=== PATIENT | female | born 1990 | race Caucasian/White ===

== ENCOUNTER 2019-02-15 21:38 | Emergency (ER) | payer MEDICAID, SELFPAY ==
[2019-02-15 21:41] VITALS: BP 132/75; PULSE 116; RESP 15; TEMP 36.8; O2SAT 96; BMI 22.1
--- NOTE | 2019-02-15 22:26 | ED.VIS.GEN ---
History of Present Illness Chief Complaint: Bite Informant: Patient Onset: Today Context: Sudden Onset Narrative: Is a 29-year-old female with no significant past medical history presenting with a dog bite to her right forearm. Patient states she was petting the dog when her brother walked in the room startling the dog. It then bit her forearm. The dog was approximate 5 years old. It was a friend's dog. She does not know what kind of dog it was but states it was big and white. As far she knows the dog is up-to-date with his vaccinations. Patient is not sure when her last tetanus was. She denies any other complaints at this time. She came in because she was concerned she might need stitches. She notes she does have a little bit of tingling in all of her fingers on her right hand. Past Medical History - Allergies and Home Meds Allergies/Adverse Reactions: Allergies No Known Allergies Allergy (Verified 02/15/19 21:43) Primary Care Physician: Care Physician,No Primary [Primary Care Provider] - Past Medical History: None Surgical History: noncontributory Smoking Status: Current every day smoker Review of Systems All systems negative except as indicated Skin: Reports: Wounds - Right forearm from dog bite Physical Exam Vital Signs/Narrative: Vital Signs Temp Pulse Resp BP Pulse Ox 02/15/19 21:41 98.3 F 116 H 15 132/75 H 96 Inital Vital Signs reviewed: Yes General: Well nourished, Well developed, No Acute Distress Head: Normocephalic, Atraumatic Eyes: Perrl, EOMI ENT: Moist mucous membranes Neck: Supple Cardiovascular: Regular rate, Regular rhythm Respiratory: No distress Back: Nontender, Normal Inspection Extremities: Nontender, No edema, - - Joint deformity, full range of motion of the right upper extremity Skin: Normal color, - - Full-thickness 7 mm laceration of the mid right forearm, medial/ventral aspect with some associated bruising and 4 cm superficial abrasion, consistent with a dog bite area no active bleeding, wound is 2 mm wide Neurological: Alert, Oriented x3, Cranial nerves II-XII grossly intact, Normal Strength, Normal Sensation Psychological: Normal affect, Normal Mood Diagnostic/Tx/Re-eval - Medical Decision Making She is evaluated for a dog bite. It appears the dog was spooked while she was painted and then bit her. Do not have concerns for rabies. Tetanus is updated in the patient. Wound care with copious irrigation is provided. Patient is counseled on generalized wound care. She started on Augmentin to prevent infection. She is encouraged to follow-up with her primary care doctor at [facility]. Patient is counseled on signs and symptoms requiring return to the emergency room. Patient verbalizes agreement and understand this plan. Patient discharged home in stable and improved condition. ED Disposition - Plan for ED Patient: Disposition: Home or Assisted Living Diagnosis: Dog bite of right arm, Need for tetanus booster Instructions: Dog Bite Prescriptions: Amoxicillin/Potassium Clav [Augmentin 875-125 Tablet] 1 ea PO BID #14 tab Prescription Printed Referrals: Care Physician,No Primary [Primary Care Provider] - Additional Instructions: Follow-up with your primary care doctor. Watch for signs of infection. Keep the wound clean and moist. Return if you have worsening symptoms or concerns. Take ibuprofen or Tylenol as needed for pain. Stitches are not performed today because it can increase risk of infection
[2019-02-15] MEDS: Amox/Clavulanate 875 MG Tablet PO (22:41)
[2019-02-15] MEDS: Diphth,Pertuss(Acell),Tet Vac 0.5 ML Vial IM (22:42)
[2019-02-15] MEDS: BACITRACIN 15 GM Tube 1 APPLIC TOPICAL (22:42)
[2019-02-15 23:00] VITALS: RESP 16
== END 2019-02-15 23:03 | disposition home or self-care (01) ==
PROVIDERS: Emergency Provider Emergency Medicine
DX: S50.871A Other superficial bite of right forearm, initial encounter (principal); S50.811A Abrasion of right forearm, initial encounter; R20.2 Paresthesia of skin; Z23 Encounter for immunization; W54.0XXA Bitten by dog, initial encounter; Y93.9 Activity, unspecified; Y92.9 Unspecified place or not applicable; F17.200 Nicotine dependence, unspecified, uncomplicated
CPT/HCPCS: 90715; 99283